=== PATIENT | male | born 1970 | race Caucasian/White ===

== ENCOUNTER 2020-11-29 21:35 | Inpatient (IN) | payer OTHER ==
[~2020-11-29] VITALS: Ht 175.3 cm; Wt 104.8 kg
[~2020-11-29 21:35] MED LIST: CIPRO500 MG PO; METRONIDAZOLE500 MG PO; NORCO 5-325 TA1 EACH PO; ZOFRAN4 M1 PO
[2020-11-29 23:40] LABS: LACTIC ACID 2.5 mmol/L (0.4-1.9)
[2020-11-30 06:30] LABS: BASOPHIL 0.2 % (0-2); EOSINOPHIL 0.1 % (0-5); HCT 44.6 % (42.0-52.0); HGB 15.1 g/dl (13.2-18.0); MCH 31.1 pg (25.0-31.0); MCHC 33.9 g/dL (32.0-36.0); MPV 12.3 fL (6.0-9.5); NEUTROPHIL 86.1 % (41-80); NRBC 0; PLT 113 K/uL (150-400); RBC 4.85 M/uL (4.70-6.00); RDW 12.4 % (11.5-14.0); WBC 20.5 K/uL (4.0-10.5)
[2020-11-30 07:32] LABS: BUN/CREAT RATIO (CALC) 14.5 RATIO; CREATININE 0.76 mg/dL (0.67-1.17); POTASSIUM 4.1 mmol/L (3.5-5.1)
[2020-12-01 06:13] LABS: BASOPHIL 0.3 % (0-2); EOSINOPHIL 0.2 % (0-5); HCT 44.7 % (42.0-52.0); HGB 14.8 g/dl (13.2-18.0); MCH 30.5 pg (25.0-31.0); MCHC 33.1 g/dL (32.0-36.0); MONOCYTE 5.8 % (0-12); MPV 11.8 fL (6.0-9.5); NEUTROPHIL 86.4 % (41-80); NRBC 0; PLT 168 K/uL (150-400); RBC 4.86 M/uL (4.70-6.00); RDW 12.5 % (11.5-14.0); WBC 26.1 K/uL (4.0-10.5)
[2020-12-01 06:26] LABS: BUN/CREAT RATIO (CALC) 11.8 RATIO; CREATININE 0.76 mg/dL (0.67-1.17); POTASSIUM 4.1 mmol/L (3.5-5.1)
[2020-12-02 06:22] LABS: BASOPHIL 0.3 % (0-2); EOSINOPHIL 1.2 % (0-5); HCT 41.4 % (42.0-52.0); HGB 13.7 g/dl (13.2-18.0); LYMPHOCYTE 7.8 % (15-48); MCH 30.3 pg (25.0-31.0); MCHC 33.1 g/dL (32.0-36.0); MCV 91.6 fL (78.0-100.0); MONOCYTE 6.6 % (0-12); MPV 11.9 fL (6.0-9.5); NEUTROPHIL 83.2 % (41-80); NRBC 0; PLT 149 K/uL (150-400); RBC 4.52 M/uL (4.70-6.00); RDW 12.5 % (11.5-14.0); WBC 17.2 K/uL (4.0-10.5)
[2020-12-02 06:54] LABS: BUN/CREAT RATIO (CALC) 11.9 RATIO; CREATININE 0.67 mg/dL (0.67-1.17); POTASSIUM 3.7 mmol/L (3.5-5.1)
[2020-12-02] MEDS ORDERED: PERCOCET 5-3251 EACH PO (14:18)
== END 2020-12-02 15:15 | disposition home or self-care (01) | DRG 872 ==
LOC: FER 21:35 → FMS 11-30 00:25
PROVIDERS: Allergy & Immunology Allergy; Emergency Medicine Emergency Medical Services; Nurse Practitioner; ADMIT Internal Medicine
DX: A41.9 Sepsis, unspecified organism (principal); K57.32 Diverticulitis of large intestine without perforation or abscess without bleeding; Z20.822 Contact with and (suspected) exposure to COVID-19; R65.20 Severe sepsis without septic shock; E11.9 Type 2 diabetes mellitus without complications; F17.210 Nicotine dependence, cigarettes, uncomplicated; Z98.890 Other specified postprocedural states; Z79.84 Long term (current) use of oral hypoglycemic drugs
CPT/HCPCS: 36415; 71045; 74018; 80048; 80053; 82962; 83036; 83605; 84145; 85025; 87040; 94010; C9113; J1170; J1650; J1885; J1956; J2405; J2543; J7030; U0002